=== PATIENT | female | born 1995 | race American Indian/Alaskan Native ===

== ENCOUNTER 2017-10-22 19:13 | Emergency (ER) | payer MEDICAID ==
[2017-10-22 20:42] VITALS: BP 117/65
[2017-10-22 21:52] LABS: Bacteria,Urine 1+ /HPF (Negative); Bilirubin,Urine NEG (Negative); Blood,Urine NEG (Negative); Color,Urine Yellow (Yellow); Mucus,Urine FEW /HPF; Protein,Urine <15 mg/dL mg/dL (Negative); Urobilinogen,Urine < 2.0 mg/dL (<2.0)
--- NOTE | 2017-10-22 22:47 | Emergency Department Report ---
ED Female HPI - General Chief complaint: Urogenital-Female Stated complaint: STD Source: patient Mode of arrival: Ambulatory Limitations: No Limitations - History of Present Illness Initial comments: 22-year-old -[place] female comes in complaint of having vaginal discharge for months. Patient reports that she is 6 months . She denies any odor or itchiness pain and bleeding to her vaginal discharge. Patient denies any fever chills no nausea no vomiting abdominal pain or pelvic cramping. Patient reports that she was with [employer] and no longer had their insurance and she just got Medicaid. 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 She is 1 para 0 currently taking vitamins. MD Complaint: vaginal discharge -: month(s) Improves with: none Worsens with: none Associated Symptoms: vaginal discharge - Related Data Sexually active: Yes : 1 Para: 0 Allergies Allergy/AdvReac Type Severity Reaction Status Date / Time No Known Allergies Allergy Unverified 10/22/17 20:39 ED Review of Systems ROS: Stated complaint: STD Other details as noted in HPI Comment: All other systems reviewed and negative Gastrointestinal: denies: abdominal pain, nausea, vomiting Genitourinary: discharge (vaginal). denies: dysuria Musculoskeletal: denies: back pain ED Past Medical Hx - Past Medical History Previous Medical History?: No - Surgical History Past Surgical History?: No - Social History Smoking Status: Never Smoker Substance Use Type: None ED Physical Exam - General Limitations: No Limitations General appearance: alert - Head Head exam: Present: atraumatic, normocephalic - Respiratory Respiratory exam: Present: normal lung sounds bilaterally. Absent: respiratory distress - Cardiovascular Cardiovascular Exam: Present: regular rate, normal rhythm. Absent: systolic murmur, diastolic murmur, rubs, gallop - GI/Abdominal GI/Abdominal exam: Present: soft, normal bowel sounds - Neurological Exam Neurological exam: Present: alert, oriented X3 - Psychiatric Psychiatric exam: Present: normal affect, normal mood - Skin Skin exam: Present: warm, dry, intact, normal color. Absent: rash ED Course Vital Signs 10/22/17 20:39 Temperature 98.8 F Pulse Rate 98 H Respiratory 16 Rate Blood Pressure 117/65 ED Medical Decision Making - Medical Decision Making Patient's been evaluated by this provider fast track. I discussed the patient that he will not D a vaginal exam as patient is 6 months . Patient has no fever or chills no vaginal bleeding. We will refer her to an industrial roof plumber for her to follow up. She verbalized understanding. Critical care attestation.: If time is entered above; I have spent that time in minutes in the direct care of this critically ill patient, excluding procedure time. ED Disposition Clinical Impression: Vaginal discharge during in second trimester Disposition: DC-01 TO HOME OR SELFCARE Is pt being admited?: No Does the pt Need Aspirin: No Condition: Stable Additional Instructions: Please follow up with her OB provider as soon as possible. Continue taking her vitamins as prescribed. Return to the emergency room if he had any vaginal bleeding or abdominal cramping or pain. Referrals: PRIMARY CARE [Primary Care Provider] - 3-5 Days [facility] [Provider Group] - 3-5 Days [facility] [Provider Group] - 3-5 Days [facility] [Provider Group] - 3-5 Days [facility] [Provider Group] - 3-5 Days Forms: Work/School Release Form(ED)
== END 2017-10-22 23:00 | disposition home or self-care (01) ==
LOC: ED 19:13
DX: O26.892 Other specified pregnancy related conditions, second trimester (principal); N89.8 Other specified noninflammatory disorders of vagina; Z3A.24 24 weeks gestation of pregnancy
CPT/HCPCS: 81001; 99283